=== PATIENT | female | born 1970 | race Caucasian/White ===

== ENCOUNTER 2017-08-13 12:32 | Emergency (ER) | payer OTHER ==
[~2017-08-13] VITALS: Ht 175.3 cm; Wt 100.0 kg
[2017-08-13 12:40] VITALS: BP 138/76; PULSE 83; RESP 20; TEMP 98.8; O2SAT 100
[2017-08-13] MEDS ORDERED: PROPOFOL 200 MG/20 ML AMP IV ONE (12:45)
[2017-08-13] MEDS ORDERED: TRAM50TA PO (12:46)
[2017-08-13] MEDS ORDERED: LIDOCAINE HCL 1% 20 ML VIAL ONE (12:52)
[2017-08-13] MEDS ORDERED: LIDOCAINE HCL 1% 30 ML VIAL INFIL ONE (13:00)
[2017-08-13] MEDS ORDERED: DICL75TA PO (13:36)
--- NOTE | 2017-08-13 13:54 | RADRPT ---
EXAM DATE/TIME: 08/13/2017 13:10 [facility] COMPARISON: No previous studies available for comparison. INDICATIONS : Right shoulder pain. MEDICAL HISTORY : Numerous dislocations. SURGICAL HISTORY : None. ENCOUNTER: Initial ACUITY: 1 day PAIN SCORE: 0/10 LOCATION: Right proximal shoulder. FINDINGS: Exam is limited. I cannot exclude dislocation. Given the patient's size CT scan may be of benefit.. CONCLUSION: Limited exam. Cannot exclude dislocation. Ben Weinstein MD FACR on August 13, 2017 at 13:50 Board Certified Radiologist. This report was verified electronically.
--- NOTE | 2017-08-13 14:30 | PD ---
HPI Chief Complaint: Injury Time Seen by Provider: 12:40 Travel History International Travel<30 days: No Contact w/Intl Traveler<30days: No Traveled to known affect area: No History of Present Illness HPI 46-year-old female that presents to the ED for evaluation of right shoulder injury. Per patient she was putting a light bulb and she felt a sharp pain in her right shoulder and she has not been able to move her right shoulder since. She does have a history of right shoulder dislocation in the past. Patient denies any fevers chills or sweats. No chest pain or shortness of breath. No trauma recently. No surgeries to the shoulder. Per patient the pain is 10 out of 10. She was given morphine for the pain with some relief. Denies any numbness, tingling, weakness. No allergies to medication. Denies any other medical issues. Has PCP. No head injuries or trauma. PFSH Past Medical History Diminished Hearing: No Musculoskeletal: Yes (CHRONIC NECK PIAN D/T PINCHED NERVES) Tetanus Vaccination: > 5 Years Influenza Vaccination: No ?: Not : 3 Para: 3 Miscarriage: 0 : 0 Past Surgical History Cholecystectomy: Yes Social History Alcohol Use: No Tobacco Use: No Substance Use: No Allergies-Medications (Allergen,Severity, Reaction): Coded Allergies: No Known Allergies (Unverified , 08/13/17) Reported Meds & Prescriptions Reported Meds & Active Scripts Active Diclofenac Sodium DR (Diclofenac Sodium) 75 Mg Tabdr 75 Mg PO BID PRN Reported Tramadol (Tramadol HCl) 50 Mg Tab 50 Mg PO Q4H PRN Review of Systems Except as stated in HPI: all other systems reviewed are Neg Physical Exam Narrative GENERAL: SKIN: Warm and dry. HEAD: Atraumatic. Normocephalic. EYES: Pupils equal and round. No scleral icterus. No injection or drainage. ENT: No nasal bleeding or discharge. Mucous membranes pink and moist. Tongue is midline. No uvula deviation. NECK: Trachea midline. No JVD. CARDIOVASCULAR: Regular rate and rhythm. RESPIRATORY: No accessory muscle use. Clear to auscultation. Breath sounds equal bilaterally. GASTROINTESTINAL: Abdomen soft, non-tender, nondistended. Hepatic and splenic margins not palpable. MUSCULOSKELETAL: Extremities without clubbing, cyanosis, or edema. No obvious deformities. patient has pain with ROM of the right upper extremity. Cannot move shoulder without pain. Obvious deformity to it. No neurological deficits. Patient sitting with a sling on the right arm. Full range of motion of the elbow and wrist as well as the fingers. No obvious deformities or pain to any other extremity. NEUROLOGICAL: Awake and alert. No obvious cranial nerve deficits. Motor grossly within normal limits. Five out of 5 muscle strength in the arms and legs. Normal speech. PSYCHIATRIC: Appropriate mood and affect; insight and judgment normal. Data Data Last Documented VS Vital Signs Date Time Temp Pulse Resp B/P (MAP) Pulse Ox O2 Delivery O2 Flow Rate FiO2 08/13/17 12:40 98.8 83 20 138/76 (96) 100 Orders Orders Shoulder, Limited(2vws) (08/13/17 ) Propofol 200 Mg/20 Ml Inj (Diprivan 200 (08/13/17 12:45) Lidocaine 1% Inj (Xylocaine 1% Inj) (08/13/17 13:00) Lidocaine 1% Inj (Xylocaine 1% Inj) (08/13/17 12:52) Splint Or Brace Apply/Monitor (08/13/17 13:02) Shoulder, Limited(2vws) (08/13/17 ) Sling Cradle Arm (08/13/17 ) Ed Discharge Order (08/13/17 15:31) MDM Medical Decision Making Medical Screen Exam Complete: Yes Emergency Medical Condition: Yes Medical Record Reviewed: Yes Interpretation(s) Last Impressions Shoulder X-Ray 08/13/17 0000 Signed Impressions: Service Date/Time: Sunday, August 13, 2017 13:10 - CONCLUSION: Limited exam. Cannot exclude dislocation. Ben Weinstein MD FACR Differential Diagnosis Dislocation versus fracture versus normal exam Narrative Course 46-year-old female that presents to the ED for evaluation of right shoulder pain. Patient was properly examined and was found to have signs and symptoms consistent with dislocation. I attending Dr. Williamson was made aware of findings and evaluated the patient himself. He recommends local sedation with lidocaine injection to the right shoulder. Patient agree with this. Please refer to my attendings note. We were able to successfully reduce dislocation. Patient tolerated procedure well. X-ray was done. Per x-ray report possibly still dislocated. On exam she does not appear to be dislocated anymore. I have my attending Dr. Williamson evaluated the patient who agrees with plan. He wants another view of the x-ray to reevaluate. Review was done and did show complete reduction. This time my attending agrees the patient can be sent home. Patient was given prescription for diclofenac sodium. Given sling. Told to follow with orthopedic surgeon or PCP. See ED worsening symptoms. Worker's comp paperwork was filled by me. Diagnosis Primary Impression: Shoulder dislocation Qualified Codes: S43.004A - Unspecified dislocation of right shoulder joint, initial encounter Patient Instructions: General Instructions Additional Instructions: Take medications as prescribed. Follow-up with PCP. See ED for any worsening symptoms. Apply ice or heat as needed for pain Med/Other Pt SpecificInfo: Prescription(s) given Scripts Diclofenac Sodium DR (Diclofenac Sodium DR) 75 Mg Tabdr 75 MG PO BID Y for PAIN SCALE 1 TO 10, #20 TAB 0 Refills Prov: Familia Williamson MD 08/13/17 Disposition: 01 DISCHARGE HOME Condition: Stable Dhruv Avalos Aug 13, 2017 14:30
--- NOTE | 2017-08-13 15:46 | RADRPT ---
EXAM DATE/TIME: 08/13/2017 14:37 [facility] COMPARISON: SHOULDER RIGHT LTD (2VWS), August 13, 2017, 13:10. INDICATIONS : Post reduction. MEDICAL HISTORY : Multiple dislocations. SURGICAL HISTORY : None. ENCOUNTER: Subsequent ACUITY: 1 day PAIN SCORE: 2/10 LOCATION: Right shoulder. FINDINGS: 2 views of the shoulder are provided. The humeral head appears well aligned within the glenoid fossa. No definite fracture is seen. CONCLUSION: 1. Satisfactory alignment of the right glenohumeral joint. Keegan Weinstein MD on August 13, 2017 at 15:41 Board Certified Radiologist. This report was verified electronically.
[2017-08-13 16:15] VITALS: BP 145/82; PULSE 80; RESP 16; O2SAT 99
== END 2017-08-13 16:21 | disposition home or self-care (01) ==
LOC: NEPC 12:32
DX: S43.004A Unspecified dislocation of right shoulder joint, initial encounter (principal); X58.XXXA Exposure to other specified factors, initial encounter
CPT/HCPCS: 23650; 73030